=== PATIENT | male | born 1935 | race Caucasian/White ===

== ENCOUNTER 2023-05-04 14:41 | Outpatient (AMB) | payer MEDICARE, SELFPAY ==
[2023-05-04 14:57] VITALS: BP 102/62; PULSE 73; O2SAT 95; BMI 24.3
--- NOTE | 2023-05-04 14:57 | MHC.OFFVIS ---
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 [employer] Required: No Accompanied by: Spouse Allergies Seasonal Allergies Allergy (Unknown, Verified 05/04/23 14:57) Runny Nose allevyn adhesive Allergy (Unknown, Uncoded 05/04/23 14:57) Unknown HPI HPI Comments History of Present Illness Details 87y/o male with multiple medical issues comes for evaluation of memory issues . His noticed memory issues for over 1 year. He has short term memory issues.He forgets conversations, misplaces things , confused with dates , repeats questions etc. He denies any executive dysfunction. His helps with medications. He is on CPAP for sleep apnea and still has trouble sleeping due to pain.There is a mention of normal pressure hydrocephalus in PCPs not but patient or his does not recall.His 89y/o sister recently recently and had dementia. He was a chronic smoker . He has depression and is not motivated. [facility] Medical History (Updated 05/04/23 @ 15:44 by Rosette Burns MD) Allergic rhinitis Atrial fibrillation Back pain Basal cell carcinoma BPH (benign prostatic hyperplasia) Chronic SI joint pain Colon polyps Constipation DDD (degenerative disc disease), lumbar Depression Diabetes HTN (hypertension) Insomnia Memory change NPH (normal pressure hydrocephalus) EDU on CPAP PAC (premature atrial contraction) Surgical History History of back surgery History of knee replacement History of transurethral resection of prostate Status post Mohs surgery for basal cell carcinoma Family History Father Leukemia Daughter Ulcerative colitis Social History Alcohol intake: current Alcohol intake frequency: holidays/special occasions only Patient Tobacco Use Status: Former Tobacco user Review of Systems Const Reports lethargy, Reports malaise and Reports weight loss ENT Reports hearing loss Card Reports irregular heart rhythm Musc Reports abnormal gait and Reports back pain Neuro Reports abnormal gait and Reports memory loss Psych Reports memory loss Physical Exam Vital Signs: Oxygen Delivery Method Room Air 05/04/23 14:57 BMI result Body Mass Index 24.3 Const General: cooperative and comfortable Nutritional Appearance: average body habitus Orientation/consciousness: patient oriented x3 Limitations: physical limitations Eyes Pupils: Equal, round and reactive pupils present Neuro General: patient oriented x3, tone normal, moves all extremities, no focal motor deficits and Unable to assess gait Cranial nerves: Yes Facial sensation intact/muscles of mastication intact, Yes Equal, round and reactive pupils present, Yes Bilaterally intact EOM present, Yes Nystagmus not present, Yes Normal facial strength present, Yes Midline tongue present, Yes Symmetric palate elevation present and Yes Ability to bilaterally elevate shoulders present Cognition (Neuro): normal cognition Gait exam (Neuro): Unable to assess gait Motor exam (neuro): 5/5 motor strength present throughout and Normal motor muscle tone present throughout Deep tendon reflexes (DTR's): Right triceps reflex intensity grade: 1+, Left triceps reflex intensity grade: 1+, Rt Biceps (C5, C6): 1+, Left biceps reflex intensity grade: 1+, Right brachioradialis reflex intensity grade: 1+, Left brachioradialis reflex intensity grade: 1+, Right patellar reflex intensity grade: 1+ and Left patellar reflex intensity grade: 1+ Coordination: [id number] test normal Orientation What is the (year) (season) (date) (day) (month)?: year, season, date, day and month Where are we (state) (county) (town or city) (hospital) (floor)?: county, town or city, hospital/clinic and floor Registration Name of 3 unrelated objects clearly and slowly, then ask patient to repeat all 3 of them. (1st repeat determines score. Make sure they can repeat all three): object 1, object 2 and object 3 Attention & Calculation (CHOOSE ONE) Spell WORLD backwards (DLROW): 5 letters Recall Ask patient to repeat the 3 items from question #3.: object 1 and object 2 Language Show patient a wristwatch & ask what it is. Repeat for pencil.: watch and pencil Ask the patient to repeat the phrase 'No ifs, ands, or buts' after you.: correct Ask the patient to 'take a piece of paper with their right hand' 'fold paper in half' 'place paper on floor': take paper in right hand, fold paper in half and place paper on floor Print the sentence 'CLOSE YOUR EYES' on a piece. If patient actually closes eyes then score.: followed written direction Give patient a blank piece of paper & ask to write a sentence. Score if it contains a noun & verb.: sentence contains subject and verb Ask patient to copy figure of intersecting pentagons exactly. Score if all 10 angles & 2 intersects are included.: all 10 angles present & 2 are intersected Score Score: 28 Assessment & Plan Assessment & Plan (1) Memory change: Comment: age related , he did well on MMSE today Code(s): R41.3 - Other amnesia Plan He did well on cognitive testing and his neuro exam was non focal Consider CT brain for baseline purposes, checking Vit B 12 TSH etc. Increase physical exercises and cognitive activities. Discussed sleep hygiene. Coding Level of Care Code New Pt Level 3 (09486) Diagnoses Memory change R41.3
== END 2023-05-04 15:43 | disposition home or self-care (01) ==
PROVIDERS: PCP Nurse Practitioner; Visit Provider Psychiatry & Neurology Neurology
DX: R41.3 Other amnesia (principal)
CPT/HCPCS: 99203

== ENCOUNTER → 2023-05-04 14:41 | Outpatient (BNVA) | payer MEDICARE, SELFPAY | PROVIDERS: PCP Nurse Practitioner; Visit Provider Psychiatry & Neurology Neurology | DX: R41.3 Other amnesia (principal) | CPT/HCPCS: 99202 ==